=== PATIENT | female | born 1955 | race Caucasian/White ===

== ENCOUNTER 2018-02-28 10:13 | Emergency (ER) | payer MEDICAID ==
[~2018-02-28] VITALS: Ht 154.9 cm; Wt 73.0 kg
[2018-02-28 10:17] VITALS: Ht 154.9 cm; Wt 73.0 kg
[2018-02-28 15:25] VITALS: BP 144/78
== END 2018-02-28 15:20 | disposition short-term general hospital (02) ==
LOC: ED 10:13
DX: H54.62 Unqualified visual loss, left eye, normal vision right eye (principal); H33.012 Retinal detachment with single break, left eye; Z85.3 Personal history of malignant neoplasm of breast
CPT/HCPCS: Q0092

== ENCOUNTER 2018-10-26 16:34 | Emergency (ER) | payer OTHER ==
[~2018-10-26] VITALS: Ht 152.4 cm; Wt 73.9 kg
[2018-10-26 16:53] VITALS: Ht 152.4 cm; Wt 73.9 kg
[2018-10-26 17:43] LABS: BASOPHIL % 0.5 % (0-2); PLATELET COUNT 164 x10^3mcL (130-400); RED CELL DISTRIBUTION WIDTH 13.9 % (11.5-14.5)
[2018-10-26 17:46] LABS: CALCIUM 8.6 mg/dL (8.5-10.1); CARBON DIOXIDE 29.2 mmol/L (21-32); CHLORIDE SERUM 104 mmol/L (98-107); CREATININE SERUM 0.7 mg/dL (0.6-1.0); GFR1 > 60 mL/min; GLUCOSE SERUM 295 mg/dL (74-106); POTASSIUM SERUM 3.8 mmol/L (3.5-5.1); SODIUM SERUM 140 mmol/L (136-145)
[2018-10-26 17:51] LABS: ALBUMIN 3.4 g/dL (3.4-5.0); ALKALINE PHOSPHATASE 94 U/L (46-116); ALT/SGPT 25 U/L (14-59); AST/SGOT 10 U/L (15-37); BILIRUBIN TOTAL 0.6 mg/dL (0.20-1.00); TOTAL PROTEIN, SERUM 6.7 g/dL (6.4-8.2)
[2018-10-26 19:44] VITALS: BP 113/51
== END 2018-10-26 19:44 | disposition home or self-care (01) ==
LOC: ED 16:34
PROVIDERS: Emergency Medicine
DX: S69.82XA Other specified injuries of left wrist, hand and finger(s), initial encounter (principal); E11.9 Type 2 diabetes mellitus without complications; R55 Syncope and collapse; F31.9 Bipolar disorder, unspecified; W18.39XA Other fall on same level, initial encounter; Y93.89 Activity, other specified; Y92.89 Other specified places as the place of occurrence of the external cause; Y99.8 Other external cause status
CPT/HCPCS: 36415; 82962; Q0092

== ENCOUNTER 2020-02-03 10:31 | Emergency (ER) | payer OTHER ==
[~2020-02-03] VITALS: Ht 157.5 cm; Wt 73.5 kg
[2020-02-03 10:37] VITALS: Ht 157.5 cm; Wt 73.5 kg
[2020-02-03 12:08] LABS: microscopic required? YES; urine erythrocyte TRACE (NEGATIVE)
[2020-02-03 12:12] LABS: CARBON DIOXIDE 26.4 mmol/L (21-32); CHLORIDE SERUM 99 mmol/L (98-107); CREATININE SERUM 0.7 mg/dL (0.6-1.0); GFR1 > 60 mL/min; GLUCOSE SERUM 369 mg/dL (74-106); SODIUM SERUM 134 mmol/L (136-145)
[2020-02-03 12:17] LABS: ALBUMIN 3.5 g/dL (3.4-5.0); ALKALINE PHOSPHATASE 82 U/L (46-116); ALT/SGPT 33 U/L (14-59); AST/SGOT 16 U/L (15-37); LIPASE 107 IU/L (73-393)
[2020-02-03 12:23] LABS: BASOPHIL % 0.5 % (0-2); PLATELET COUNT 150 x10^3mcL (130-400); RED CELL DISTRIBUTION WIDTH 13.1 % (11.5-14.5)
[2020-02-03 14:23] VITALS: BP 143/79
== END 2020-02-03 14:23 | disposition home or self-care (01) ==
LOC: ED 10:31
PROVIDERS: Emergency Medicine
DX: K80.80 Other cholelithiasis without obstruction (principal); N28.1 Cyst of kidney, acquired; K76.0 Fatty (change of) liver, not elsewhere classified; K45.8 Other specified abdominal hernia without obstruction or gangrene; E11.9 Type 2 diabetes mellitus without complications; Z85.3 Personal history of malignant neoplasm of breast
CPT/HCPCS: 82962; J7030; Q0092; Q9967